=== PATIENT | female | born 1990 | race Caucasian/White ===

== ENCOUNTER 2018-09-10 15:25 | Inpatient (IN) | payer OTHER ==
--- NOTE | 2018-09-10 16:15 | ED ---
Abdominal Pain/Female - HPI Summary HPI Summary: A 28 y/o female accompanied by her father presents to [facility] with a chief complaint of RUQ abdominal pain since 09/05/18. Per triage note, Pt states n/v/ d and centralized abd pain started Friday. Developed fever Friday. Motrin at 1100. Unable to get BP in triage. She rates her pain as a 7/10 in severity and describes her pain as cramping. Her BP in the room was 127/96. The patient reports that her diarrhea stopped on 09/09/18 but she is still nauseous. She denies any urinary symptoms. She has not eaten since 09/08/18 and her PCP suggested that she go on a bread diet. The patient reports that she has not had a BM on 09/10/18. 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 She came to the ED because she thought her fever was worse than it actually is. She thought her temperature was 104 but in the ED it is 100.6. SHx tonsillectomy. - History of Current Complaint Chief Complaint: EDAbdPain Stated Complaint: HIGH FEVER Time Seen by Provider: 09/10/18 15:54 Hx Obtained From: Patient, Family/Rn Access - father Onset/Duration: Sudden Onset, Lasting Days, Still Present Timing: Constant Severity Initially: Severe Severity Currently: Severe Pain Intensity: 7 Pain Scale Used: 0-10 Numeric Location: Discrete At: RUQ Radiates: No Character: Cramping Aggravating Factor(s): Nothing Alleviating Factor(s): Nothing Associated Signs and Symptoms: Positive: Fever, Nausea, Vomiting. Negative: Urinary Symptoms, Diarrhea Allergies/Adverse Reactions: Allergies Allergy/AdvReac Type Severity Reaction Status Date / Time amoxicillin Allergy Unknown Verified 09/10/18 18:06 Reaction Details PMH/Surg Hx/FS Hx/Imm Hx Endocrine/Hematology History: Reports: Hx Diabetes Cardiovascular History: Denies: Hx Congestive Heart Failure, Hx Hypertension, Hx Pacemaker/ICD History: Denies: Hx Renal Disease Sensory History: Denies: Hx Hearing Aid Psychiatric History: Denies: Hx Panic Disorder - Surgical History Surgery Procedure, Year, and Place: TONSILECTOMY Infectious Disease History: No Infectious Disease History: Denies: Traveled Outside the [place] in Last 30 Days - Family History Known Family History: Positive: Hypertension, Other - positive: atrial fibrillation - Social History Alcohol Use: None Substance Use Type: Reports: None Smoking Status (MU): Never Smoked Tobacco Review of Systems Positive: Fever Positive: Abdominal Pain, Vomiting, Nausea. Negative: Diarrhea Positive: no symptoms reported All Other Systems Reviewed And Are Negative: Yes Physical Exam - Summary Physical Exam Summary: Appearance: The patient is obese in no acute distress and in no acute pain. Skin: The skin is warm and dry and skin color reflects adequate perfusion. HEENT: The head is normocephalic and atraumatic. The pupils are equal and reactive. The conjunctivae are clear and without drainage. Nares are patent and without drainage. Mouth reveals moist mucous membranes and the throat is without erythema and exudate. The external ears are intact. The ear canals are patent and without drainage. The tympanic membranes are intact. Neck: The neck is supple with full range of motion and non-tender. There are no carotid bruits. There is no neck vein distension. Respiratory: Chest is non-tender. Lungs are clear to auscultation and breath sounds are symmetrical and equal. Cardiovascular: Heart is regular rate and rhythm. There is no murmur or rub auscultated. There is no peripheral edema and pulses are symmetrical and equal. Abdomen: The abdomen is tender RUQ. There are normal bowel sounds heard in all four quadrants and there is no organomegaly palpated. Musculoskeletal: There is no back tenderness noted. Extremities are non-tender with full range of motion. There is good capillary refill. There is no peripheral edema or calf tenderness elicited. Neurological: Patient is alert and oriented to person, place and time. The patient has symmetrical motor strength in all four extremities. Cranial nerves are grossly intact. Deep tendon reflexes are symmetrical and equal in all four extremities. Psychiatric: The patient has an appropriate affect and does not exhibit any anxiety or depression. Triage Information Reviewed: Yes Vital Signs On Initial Exam: Initial Vitals Temp Pulse Resp BP Pulse Ox 100.6 F 142 22 0/0 96 09/10/18 15:33 09/10/18 15:33 09/10/18 15:33 09/10/18 15:33 09/10/18 15:33 Vital Signs Reviewed: Yes Diagnostics - Vital Signs Vital Signs Temp Pulse Resp BP Pulse Ox 09/10/18 15:51 111 127/96 95 09/10/18 15:50 112 96 09/10/18 15:33 100.6 F 142 22 0/0 96 - Laboratory Result Diagrams: 09/10/18 17:16 09/10/18 17:16 Lab Statement: Any lab studies that have been ordered have been reviewed, and results considered in the medical decision making process. - Ultrasound No standard instances Ultrasound Interpretation Completed By: Radiologist Summary of Ultrasound Findings: Gallbladder US impression: 1. LIMITED STUDY. 2. FATTY INFILTRATION OF THE LIVER. 3. THERE IS SLUDGE WITHIN THE GALLBLADDER. THERE IS AN EQUIVOCAL SONOGRAPHIC GARCIA SIGN. THIS IS INDETERMINATE FOR THE SONOGRAPHIC FEATURES OF ACUTE CHOLECYSTITIS. ED physician has reviewed this imaging report. Re-Evaluation - Re-Evaluation First Eval Re-Evaluation Time: 18:03 Change: Unchanged Comment: Discussed plan for admission. Abdominal Pain Fem Course/Dx - Course Course Of Treatment: Ms. Mendoza presented with right upper quadrant pain for the last 4-5 days. She has been nauseated at times and has decreased appetite. She is morbidly obese but nontoxic in appearance. She was tender in the right upper quadrant only on presentation and ultrasound was read as consistent with cholecystitis with a distended gallbladder, a sonographic Garcia sign and gallbladder sludge. She had no leukocytosis but did have some mildly elevated liver enzymes. I spoke with Dr. Tony who requested hospitalist involvement and I spoke with Dr. Chand. She was given antibiotics and fluids in the ED - Diagnoses Provider Diagnoses: Acute cholecystitis - Provider Notifications Discussed Care Of Patient With: Floyd Chand Time Discussed With Above Provider: 17:58 Instructed by Provider To: Admit As Inpatient - Critical Care Time Critical Care Time: 30-74 min Discharge - Sign-Out/Discharge Documenting (check all that apply): Patient Departure - admit Patient Received Moderate/Deep Sedation with Procedure: No - Discharge Plan Condition: Fair Disposition: ADMITTED TO [facility] Referrals: Bebeto Mosley MD [Medical Doctor] - - Billing Disposition and Condition Condition: FAIR Disposition: Admitted to [facility] - Attestation Statements Document Initiated by Scribe: Yes Documenting Scribe: Jozef Alexandra Provider For Whom Scribe is Documenting (Include Credential): Aakash Kaplan MD Scribe Attestation: Jozef Eng, scribed for Aakash Kaplan MD on 09/10/18 at 1812. Scribe Documentation Reviewed: Yes Provider Attestation: The documentation as recorded by the christibe, Jozef Alexandra accurately reflects the service I personally performed and the decisions made by me, Aakash Kaplan MD Status of Scribe Document: Viewed Consult Consult: At 17:[address] Tony, surgery, who recommended admission to the hospitalist.
[2018-09-10] MEDS ORDERED: NS 0.9% 1000 ML** 1,000 ML IV ONE (16:16)
[2018-09-10 17:25] LABS: ABS Basophils 0 10^3/ul (0-0.2); ABS Eosinophils 0.1 10^3/ul (0-0.6); ABS Lymphocytes 1.1 10^3/ul (1.0-4.8); ABS Monocytes 0.5 10^3/ul (0-0.8); ABS Neutrophils 8.1 10^3/ul (1.5-7.7); ABS Nucleated RBC 0 10^3/ul; Eosinophil % 0.9 %; Hematocrit 45 % (35-47); Hemoglobin 14.8 g/dl (12.0-16.0); Lymphocyte % 11.3 %; Mean Corpuscular HGB Conc 33 g/dl (31-36); Mean Corpuscular Hemoglobin 25 pg (27-31); Mean Corpuscular Volume 77 fL (80-97); Mean Platelet Volume 8.6 fL (7.4-10.4); Nucleated Red Blood Cells % 0.1; Platelet Count 122 10^3/ul (150-450); Red Blood Count 5.81 10^6/ul (4.00-5.40); Red Cell Distribution Width 14 % (10.5-15); White Blood Count 9.9 10^3/ul (3.5-10.8)
[2018-09-10 17:43] LABS: ALT 115 U/L (7-52); AST 113 U/L (13-39); Albumin/Globulin Ratio 1.2 (1-3); Alkaline Phosphatase 79 U/L (34-104); Anion Gap 6 mmol/L (2-11); Blood Urea Nitrogen 7 mg/dL (6-24); C Reactive Protein 22.22 mg/L (<8.01); CO2 Carbon Dioxide 29 mmol/L (22-32); Calcium 9.6 mg/dL (8.6-10.3); Chloride 102 mmol/L (101-111); EGFR African American 118.9 (>60); EGFR Non-African American 98.3 (>60); Globulin 3.4 g/dL (2-4); Glucose 85 mg/dL (70-100); Potassium 4.2 mmol/L (3.5-5.0); Sodium 137 mmol/L (135-145); Total Protein 7.4 g/dL (6.4-8.9)
[2018-09-10 17:48] LABS: HCG Pregnancy < 0.60 mIU/mL
[2018-09-10] MEDS ORDERED: Morphine VIAL* 10 MG/ML 1 ML VIAL IV ONE (17:51)
[2018-09-10] MEDS ORDERED: Ondansetron INJ* 2 MG/ML VIAL IV ONE (17:52)
[2018-09-10] MEDS ORDERED: metroNIDAZOLE IV 500 MG/100ML* 500 MG/100 ML BAG IVPB ONE (17:59)
[2018-09-10] MEDS ORDERED: Ciprofloxacin 400MG IVPREMIX(* 400 MG/200 ML BAG IVPB ONE (17:59)
--- NOTE | 2018-09-10 18:50 | ADMNOTE ---
Subjective Date of Service: 09/10/18 Interval History: ADMISSION HISTORY AND PHYSICAL EXAM: Allergies Allergy/AdvReac Type Severity Reaction Status Date / Time amoxicillin Allergy Unknown Verified 09/10/18 18:06 Reaction Details Home Medications Medication Instructions Recorded Confirmed Type Levothyroxine TAB* [Synthroid 150 150 mcg PO 0800 03/28/14 03/28/14 History MCG TAB*] metFORMIN* [Glucophage*] 1,000 mg PO 0800,1700 03/28/14 03/28/14 History HPI: The patient started with emesis 5 days ago but this got better. RUQ pain started yesterday and is more severe this afternoon. Temp was 102.4 at home, pt and father expressed concern that their thermometer may not be accurate. 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 No alcohol or tobacco use. Lives with her parents who are her SDM's. Past Medical History: Findings - Never hospitalized, nulligravida Review of Systems - Measurements Intake and Output: Intake and Output Last 24 Hours 09/08/18 09/09/18 09/10/18 09/11/18 06:59 06:59 06:59 06:59 Weight 279 lb - Review of Systems Constitutional Symptoms: Positive: Other - chills Dermatology: Positive: Normal HEENT: Positive: Normal Eyes: Positive: Normal Thyroid: Positive: Primary Hypothyroidism Pulmonary: Positive: Normal Cardiology: Positive: Normal Gastroenterology: Positive: Abdominal Pain, Nausea, Vomiting, Anorexia Musculoskeletal: Negative: Joint Pain, Joint Stiffness, Arthritis, Osteoporosis, Low Back Pain , Sciatica, Joint Deformities, Kyphoscoliosis, Other Endocrinology: Positive: Thyroid Problems, Other - "pre-diabetes" doesn't know her A1C. Hematologic/Lymphatic: Negative: Anemia, Easy Brusing, Hx Leukemia, Hx Lymphoma, Use of Anticoagulant, Use of Antiplatelet Drugs, Other Neurology: Positive: Normal Psychiatry: Positive: Normal Allergic/Immunologic: Negative: Hx Anaphylaxis, Hx Angioedema, Hx Environmental, Hx Seasonal, Athsma, Hx HIV, Immunocompromise, Swollen Glands LymphNodes, Other Objective Active Medications: Enoxaparin Sodium (Lovenox(*)) 40 mg SUBCUT Q24H DAPHNIE Ciprofloxacin/Dextrose (Cipro 400 Mg Ivpremix(*)) 400 mg in 200 mls @ 200 mls/ hr IVPB ED ONCE ONE Stop: 09/10/18 18:58 Metronidazole/Sodium Chloride (Flagyl 500 Mg Ivpb*) 500 mg in 100 mls @ 100 mls /hr IVPB ONCE ONE Stop: 09/10/18 18:58 Last Admin: 09/10/18 18:33 Dose: 100 mls/hr Ciprofloxacin/Dextrose (Cipro 400 Mg Ivpremix(*)) 400 mg in 200 mls @ 200 mls/ hr IVPB Q12H DAPHNIE Metronidazole/Sodium Chloride (Flagyl 500 Mg Ivpb*) 500 mg in 100 mls @ 100 mls /hr IVPB Q8H DAPHNIE Levothyroxine Sodium (Synthroid Tab*) 200 mcg PO 0800 DAPHNIE Vital Signs - 8 hr 09/10/18 09/10/18 09/10/18 15:33 15:50 15:51 Temperature 100.6 F Pulse Rate 142 112 111 Respiratory 22 Rate Blood Pressure 0/0 127/96 (mmHg) O2 Sat by Pulse 96 96 95 Oximetry 09/10/18 09/10/18 09/10/18 16:00 16:21 17:00 Temperature Pulse Rate 103 103 Respiratory Rate Blood Pressure 135/80 (mmHg) O2 Sat by Pulse 95 98 Oximetry 09/10/18 09/10/18 09/10/18 17:42 17:46 17:51 Temperature 100.7 F Pulse Rate 105 96 Respiratory Rate Blood Pressure 133/87 122/97 (mmHg) O2 Sat by Pulse 97 98 Oximetry 09/10/18 09/10/18 09/10/18 17:58 18:00 18:21 Temperature Pulse Rate 105 115 Respiratory 18 Rate Blood Pressure 135/75 (mmHg) O2 Sat by Pulse 96 95 Oximetry Oxygen Devices in Use Now: None Appearance: Alert, supine on ED stretcher. Child-like affect, anxious. Eyes: No Scleral Icterus Ears/Nose/Mouth/Throat: Clear Oropharnyx, Mucous Membranes Moist Respiratory: Symmetrical Chest Expansion and Respiratory Effort, Clear to Auscultation, Clear to Percussion Cardiovascular: NL Sounds; No Murmurs; No JVD, RRR, No Edema, - Abdominal: - - mod to severe RUQ tenderness. Active BS Extremities: No Edema, No Clubbing, Cyanosis, - Skin: No Rash or Ulcers, No Nodules or Sclerosis, - Neurological: Alert and Oriented x 3, NL Sensation Result Diagrams: 09/10/18 17:16 09/10/18 17:16 Assess/Plan/Problems-Billing Assessment: - Patient Problems (1) Cholecystitis Current Visit: Yes Status: Acute Code(s): K81.9 - CHOLECYSTITIS, UNSPECIFIED SNOMED Code(s): 70727046 Comment: Sludge in GB on US. Continue cipro/metro. Dr. Tony to consult. (2) Pre-diabetes Current Visit: Yes Status: Acute Code(s): R73.03 - PREDIABETES SNOMED Code (s): 176575977 Comment: Pt does not know her A1C. Needs outpt fup. (3) Fatty liver Current Visit: Yes Status: Acute Code(s): K76.0 - FATTY (CHANGE OF) LIVER, NOT ELSEWHERE CLASSIFIED SNOMED Code(s): 657936397 Comment: Per anuj. Needs outpt fup. (4) Hypothyroidism Current Visit: Yes Status: Acute Code(s): E03.9 - HYPOTHYROIDISM, UNSPECIFIED SNOMED Code(s): 44446749 Comment: Add on TSH requested. Continue levothyroxine 200 mcg as at home.
[2018-09-10 19:23] LABS: Urine Appearance Clear; Urine Bacteria Absent (Absent); Urine Bilirubin Negative (Negative); Urine Blood 2+ (Negative); Urine Color Yellow; Urine Glucose Negative (Negative); Urine Ketones 1+ (Negative); Urine Nitrite Negative (Negative); Urine Protein Negative (Negative); Urine Red Blood Cell 3+(>10/hpf) (Absent); Urine Specific Gravity 1.014 (1.010-1.030); Urine Squamous Epithelial Cell Present (Absent); Urine Urobilinogen Negative (Negative); Urine White Blood Cell Absent (Absent)
[2018-09-10 20:06] LABS: TSH (Thyroid Stimulating Horm) 0.01 mcIU/mL (0.34-5.60)
[2018-09-10] MEDS ORDERED: Acetaminophen TAB* 325 MG PO ONE (21:13)
[2018-09-10] MEDS: Enoxaparin(*) 40 MG/0.4 ML SYR SUBCUT SCH (21:49)
[2018-09-10] MEDS: Ondansetron INJ* 2 MG/ML VIAL IV PRN (22:00)
[2018-09-10] MEDS: Morphine INJ* 2 MG/ML 1 ML SYRINGE (TWO MG - NEW SYRINGE VERSION) IV PRN (22:00)
[2018-09-11] MEDS: metroNIDAZOLE IV 500 MG/100ML* 500 MG/100 ML BAG IVPB SCH ×3 (01:06→18:10)
[2018-09-11] MEDS: Morphine INJ* 2 MG/ML 1 ML SYRINGE (TWO MG - NEW SYRINGE VERSION) IV PRN ×2 (02:05→06:22)
[2018-09-11] MEDS ORDERED: Levothyroxine TAB* 100 MCG TAB PO SCH (06:00)
[2018-09-11] MEDS: Ondansetron INJ* 2 MG/ML VIAL IV PRN ×2 (06:22→20:04)
[2018-09-11 06:30] LABS: ABS Basophils 0.1 10^3/ul (0-0.2); ABS Eosinophils 0.1 10^3/ul (0-0.6); ABS Lymphocytes 2.3 10^3/ul (1.0-4.8); ABS Monocytes 0.6 10^3/ul (0-0.8); ABS Neutrophils 3.9 10^3/ul (1.5-7.7); ABS Nucleated RBC 0 10^3/ul; Eosinophil % 1.6 %; Hematocrit 42 % (35-47); Hemoglobin 13.8 g/dl (12.0-16.0); Lymphocyte % 32.7 %; Mean Corpuscular HGB Conc 33 g/dl (31-36); Mean Corpuscular Hemoglobin 26 pg (27-31); Mean Corpuscular Volume 77 fL (80-97); Mean Platelet Volume 8.4 fL (7.4-10.4); Nucleated Red Blood Cells % 0; Platelet Count 123 10^3/ul (150-450); Red Blood Count 5.39 10^6/ul (4.00-5.40); Red Cell Distribution Width 14 % (10.5-15); White Blood Count 6.9 10^3/ul (3.5-10.8)
[2018-09-11 06:46] LABS: Albumin 3.4 g/dL (3.2-5.2); Albumin/Globulin Ratio 1.1 (1-3); BUN/Creatinine Ratio 11.1 (8-20); Calcium 9.2 mg/dL (8.6-10.3); EGFR African American 134.3 (>60); Globulin 3.2 g/dL (2-4); Potassium 3.8 mmol/L (3.5-5.0); Total Bilirubin 0.5 mg/dL (0.2-1.0); Total Protein 6.6 g/dL (6.4-8.9)
[2018-09-11] MEDS: Ciprofloxacin 400MG IVPREMIX(* 400 MG/200 ML BAG IVPB SCH ×2 (07:41→20:03)
[2018-09-11] MEDS ORDERED: Acetaminophen TAB* 325 MG PO ONE (09:34)
--- NOTE | 2018-09-11 10:33 | PN ---
Progress Note - Progress Note Date of Service: 09/11/18 SOAP: Subjective:RUQ AND EPIGASTRIC PAIN 03/20 [] Objective: Vital Signs Temp 97.6 F 09/11/18 07:48 Pulse 72 09/11/18 07:48 Resp 16 09/11/18 07:50 BP 117/71 09/11/18 07:48 Pulse Ox 98 09/11/18 07:48 Intake & Output 09/10/18 09/11/18 09/11/18 18:59 06:59 18:59 Intake Total 300 Balance 300 Weight 279 lb 281 lb Intake: IV Fluids 200 Medicated IV 100 Flagyl 100 Oral 0 Laboratory Results - last 24 hr 09/10/18 09/10/18 09/10/18 17:16 17:16 17:16 WBC 9.9 RBC 5.81 H Hgb 14.8 Hct 45 MCV 77 L MCH 25 L MCHC 33 RDW 14 Plt Count 122 L MPV 8.6 Neut % (Auto) 82.2 Lymph % (Auto) 11.3 [place] % (Auto) 5.3 Eos % (Auto) 0.9 Baso % (Auto) 0.3 Absolute Neuts (auto) 8.1 H Absolute Lymphs (auto) 1.1 Absolute Monos (auto) 0.5 Absolute Eos (auto) 0.1 Absolute Basos (auto) 0 Absolute Nucleated RBC 0 Nucleated RBC % 0.1 Sodium 137 Potassium 4.2 Chloride 102 Carbon Dioxide 29 Anion Gap 6 BUN 7 Creatinine 0.70 Est GFR ( Amer) 118.9 Est GFR (Non-Af Amer) 98.3 BUN/Creatinine Ratio 10.0 Glucose 85 POC Glucose (mg/dL) Lactic Acid 1.3 Calcium 9.6 Total Bilirubin 0.60 AST 113 H ALT 115 H Alkaline Phosphatase 79 C-Reactive Protein 22.22 H Total Protein 7.4 Albumin 4.0 Globulin 3.4 Albumin/Globulin Ratio 1.2 Lipase < 10 L TSH 0.01 L Beta HCG, Quant < 0.60 Urine Color Urine Appearance Urine pH Ur Specific [place] Urine Protein Urine Ketones Urine Blood Urine Nitrate Urine Bilirubin Urine Urobilinogen Ur Leukocyte Esterase Urine WBC (Auto) Urine RBC (Auto) Ur Squamous Epith Cells Urine Bacteria Urine Glucose 09/10/18 09/10/18 09/10/18 19:00 21:18 21:32 WBC RBC Hgb Hct MCV MCH MCHC RDW Plt Count MPV Neut % (Auto) Lymph % (Auto) [place] % (Auto) Eos % (Auto) Baso % (Auto) Absolute Neuts (auto) Absolute Lymphs (auto) Absolute Monos (auto) Absolute Eos (auto) Absolute Basos (auto) Absolute Nucleated RBC Nucleated RBC % Sodium Potassium Chloride Carbon Dioxide Anion Gap BUN Creatinine Est GFR ( Amer) Est GFR (Non-Af Amer) BUN/Creatinine Ratio Glucose POC Glucose (mg/dL) 85 Lactic Acid 1.6 Calcium Total Bilirubin AST ALT Alkaline Phosphatase C-Reactive Protein Total Protein Albumin Globulin Albumin/Globulin Ratio Lipase TSH Beta HCG, Quant Urine Color Yellow Urine Appearance Clear Urine pH 7.0 Ur Specific [place] 1.014 Urine Protein Negative Urine Ketones 1+ A Urine Blood 2+ A Urine Nitrate Negative Urine Bilirubin Negative Urine Urobilinogen Negative Ur Leukocyte Esterase Negative Urine WBC (Auto) Absent Urine RBC (Auto) 3+(>10/hpf) A Ur Squamous Epith Cells Present A Urine Bacteria Absent Urine Glucose Negative 09/11/18 09/11/18 06:10 06:10 WBC 6.9 RBC 5.39 Hgb 13.8 Hct 42 MCV 77 L MCH 26 L MCHC 33 RDW 14 Plt Count 123 L MPV 8.4 Neut % (Auto) 56.2 Lymph % (Auto) 32.7 [place] % (Auto) 8.7 Eos % (Auto) 1.6 Baso % (Auto) 0.8 Absolute Neuts (auto) 3.9 Absolute Lymphs (auto) 2.3 Absolute Monos (auto) 0.6 Absolute Eos (auto) 0.1 Absolute Basos (auto) 0.1 Absolute Nucleated RBC 0 Nucleated RBC % 0 Sodium 137 Potassium 3.8 Chloride 103 Carbon Dioxide 28 Anion Gap 6 BUN 7 Creatinine 0.63 Est GFR ( Amer) 134.3 Est GFR (Non-Af Amer) 111.0 BUN/Creatinine Ratio 11.1 Glucose 88 POC Glucose (mg/dL) Lactic Acid Calcium 9.2 Total Bilirubin 0.50 AST 74 H ALT 90 H Alkaline Phosphatase 70 C-Reactive Protein Total Protein 6.6 Albumin 3.4 Globulin 3.2 Albumin/Globulin Ratio 1.1 Lipase TSH Beta HCG, Quant Urine Color Urine Appearance Urine pH Ur Specific [place] Urine Protein Urine Ketones Urine Blood Urine Nitrate Urine Bilirubin Urine Urobilinogen Ur Leukocyte Esterase Urine WBC (Auto) Urine RBC (Auto) Ur Squamous Epith Cells Urine Bacteria Urine Glucose lungs:clear bilat;heart:RRR;abd:+bs,obese,soft,nondistended;tender to palpation RUQ and epigastrium with mild guarding and rebound tenderness [] Assessment:persistent RUQ and epigastric pain;WBC nl,Tbili nl;AST and ALT trending down;afebrile gb sono sludge;equivocal sono Garcia's sign;indeterminate for acute cholecystitis pt stating that she doesn't want surgery [] Plan:Consult dictated;above reviewed with Dr. Tony;continue NPO,IV abx and IV fluids;one of the General Surgeons will see the patient today for further planning;I did discuss laparoscopic cholecystectomy indications,typical post recovery []
--- NOTE | 2018-09-11 11:35 | PN ---
Progress Note - Progress Note Date of Service: 09/11/18 SOAP: Subjective: Pt seen and care discussed with Guillermina Haas NP Pt's parents also present in room She started with nausea and diarrhea over the weekend, saw her PCP on Friday. She also had some right upper quadrant pain last week. No fevers She started with some RUQ pain on Friday-no back pain Objective: Temp Pulse Resp BP Pulse Ox 97.6 F 72 16 117/71 98 09/11/18 07:48 09/11/18 07:48 09/11/18 07:50 09/11/18 07:48 09/11/18 07:48 PEX: Morbidly obese Mild tenderness in the right upper quadrant. No rebound or guarding. No peritoneal irritation. US reviewed--not an optimal study--??sludge, ?? wall thickening although report says no. No fluid Labs reviewed--WBC normal Assessment: Nausea--diarrhea earlier in the week Subsequent development of right upper abdominal pain US with sludge Plan: HIDA scan today to evaluate for acute cholecystitis Continue IV abx for now-she feels better from yesterday She is extremely anxious about having surgery and would like to avoid-discussed with her and parents, will obtain more information with HIDA scan. If positive for acute cholecystitis, this could probably be treated successfully with antibiotics, especially if no stones present.
--- NOTE | 2018-09-11 13:01 | CONS ---
CC: Dr. Tony at [facility]; Dr. Alan Dolan * SURGICAL CONSULTATION NOTE: DATE OF CONSULT: 09/11/18 ATTENDING PHYSICIAN: Dr. Ivan Tnoy. LOCATION: This patient was seen at [facility] in room 418 on Friday , 09/11/18. CHIEF COMPLAINT: Worsening right upper quadrant abdominal pain. HISTORY OF PRESENT ILLNESS: The patient is a 28-year-old morbidly obese female , who had the onset of vomiting on 09/05/18, associated with right upper quadrant pain, chills, fever, and muscle aches. She stated that her temperature at home was as high as 102, but the patient expressed concern that her thermometer may not be accurate. She states that her urine was dark yellow to orange in color and her stools were a little light brown in color and looser. She denied any painful urination. She states that she has not been able to eat solid foods since 09/08/18. She presented to the emergency room on 09/10/18 complaining of severe right upper quadrant pain. Gallbladder ultrasound revealed a fatty liver; sludge in the gallbladder, equivocal sonographic Garcia sign indeterminate for acute cholecystitis. Her white blood cell count was 9.9, no left shift; total bilirubin 0.6, AST 113, ALT 115, lipase within normal limits. All of her electrolytes were within normal limits and test was negative. The patient was admitted to the hospitalist service for IV fluids and IV antibiotics. PAST MEDICAL HISTORY: Hypothyroidism, prediabetes, PCOS, and morbid obesity. She is followed for primary care by Dr. Dolan. PAST SURGICAL HISTORY: Tonsillectomy at age 20. OB HISTORY: 0. She states that her periods are irregular and she recently had some spotting. MEDICATIONS: 1. Levothyroxine 150 mcg p.o. daily. 2. Metformin 1000 mg p.o. b.i.d. ALLERGIES: AMOXICILLIN causes hives. FAMILY HISTORY: Parents are alive and well. Mother is treated for hypertension. Father is treated for atrial fibrillation. 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 She denies the use of alcohol or other substances and is a nonsmoker. REVIEW OF SYSTEMS: Constitutional: Fever and chills at home; no excessive fatigue. Endocrine: Hypothyroidism and prediabetes. Respiratory: No chronic cough. No shortness of breath. No history of sleep apnea. Cardiovascular: No anginal chest pain or palpitations. Gastrointestinal: As described in history of present illness. No history of colitis or ulcers. No history of GERD. Genitourinary: No dysuria. She states that her urine was darker in color recently. No history of recent urinary tract infection or kidney stones. Musculoskeletal: Body aches since the onset of her illness. Neurologic: No blurred vision or headache. General: No history of blood transfusions. No history of deep vein thrombosis or pulmonary embolism. No previous anesthesia complications. No history of MRSA infection. PHYSICAL EXAM: General Survey: The patient is a 28-year-old morbidly obese female complaining of right upper quadrant abdominal pain, in no acute distress. Height 67 inches. Weight 281 pounds. Body mass index 44. Skin: Warm, dry, intact. No jaundice. HEENT: Benign and anicteric sclerae. Neck: Supple. No cervical lymphadenopathy. Lungs: Breath sounds bilaterally clear and equal. Heart: Regular rate and rhythm. No murmurs or rubs appreciated. Abdomen: Obese. Active bowel sounds. No surgical scars. Soft, nondistended. Tender to palpation in the epigastric region and right upper quadrant. Mild guarding. Mild rebound tenderness. No obvious masses or organomegaly, but exam is limited by body habitus. Pelvic and rectal exams deferred. Extremities are warm without edema or skin ulceration. Neurologic: Alert and oriented x3. IMPRESSION: Persistent right upper quadrant and epigastric pain; gallbladder ultrasound indeterminate for acute cholecystitis; the patient states that she does not want surgery. PLAN/RECOMMENDATIONS: Continue IV fluids and NPO status. The above findings were discussed with Dr. Tony, who said that one of the general surgeons would see the patient today. IV antibiotics will be continued as well. TIME SPENT: 60 minutes with greater than 50% in [id number] counseling and history taking with the patient. FUNMI HORN NP [id number]/[facility] #: [id number] RENALDO
--- NOTE | 2018-09-11 16:12 | PN ---
Subjective Date of Service: 09/11/18 Interval History: Moraima is a 28 yo female, seen and examined at bedside. She continues to endorse RUQ, epigastic and bandlike pain across her abdomen. She was previously seen by surgery this morning but was apprehensive about the idea of surgery and was awaiting her parents' arrival. Pain medication is helpful in managing pain. 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 No alcohol or tobacco use. Lives with her parents who are her SDM's. Past Medical History: Findings - Never hospitalized, nulligravida Objective Active Medications: Enoxaparin Sodium (Lovenox(*)) 40 mg SUBCUT Q24H [facility] Last Admin: 09/10/18 21:49 Dose: Not Given Ciprofloxacin/Dextrose (Cipro 400 Mg Ivpremix(*)) 400 mg in 200 mls @ 200 mls/ hr IVPB Q12H [facility] Last Admin: 09/11/18 07:41 Dose: 200 mls/hr Metronidazole/Sodium Chloride (Flagyl 500 Mg Ivpb*) 500 mg in 100 mls @ 100 mls /hr IVPB Q8H [facility] Last Admin: 09/11/18 09:24 Dose: 100 mls/hr Levothyroxine Sodium (Synthroid Tab*) 200 mcg PO DAILY@0600 [facility] Last Admin: 09/11/18 05:05 Dose: Not Given Morphine Sulfate (Morphine Inj ((Syringe))*) 2 mg IV Q4H PRN PRN Reason: PAIN Last Admin: 09/11/18 06:22 Dose: 2 mg Ondansetron HCl (Zofran Inj*) 4 mg IV Q6H PRN PRN Reason: NAUSEA Last Admin: 09/11/18 06:22 Dose: 4 mg Vital Signs - 8 hr 09/11/18 09/11/18 11:24 11:42 Temperature 97.8 F Pulse Rate 80 Respiratory 18 18 Rate Blood Pressure 146/83 (mmHg) O2 Sat by Pulse 97 Oximetry Oxygen Devices in Use Now: None Appearance: Alert, oriented young female, responds appropriately to questions but is anxious Eyes: No Scleral Icterus, PERRLA Ears/Nose/Mouth/Throat: Mucous Membranes Moist Respiratory: Symmetrical Chest Expansion and Respiratory Effort, Clear to Auscultation Cardiovascular: NL Sounds; No Murmurs; No JVD, RRR Abdominal: - - BS +, RUQ and epigastric pain Extremities: No Clubbing, Cyanosis Neurological: Alert and Oriented x 3, NL Muscle Strength and Tone Lines/Tubes/Other Access: Clean, Dry and Intact Peripheral IV Result Diagrams: 09/11/18 06:10 09/11/18 06:10 Assess/Plan/Problems-Billing Assessment: Ms. Mendoza is a 28 yo female with a history of hypothyroidism and pre-diabetes who presented to ED on 09/10/18 with concern for RUQ pain and was found to have concern for acute cholecystitis. - Patient Problems (1) Cholecystitis Current Visit: Yes Status: Acute Code(s): K81.9 - CHOLECYSTITIS, UNSPECIFIED SNOMED Code(s): 10930564 Comment: Sludge in GB on US. Continue cipro/metro. Dr. Tony to consult. (2) Pre-diabetes Current Visit: Yes Status: Acute Code(s): R73.03 - PREDIABETES SNOMED Code (s): 245853880 Comment: Pt does not know her A1C. Needs outpt fup. (3) Fatty liver Code(s): K76.0 - FATTY (CHANGE OF) LIVER, NOT ELSEWHERE CLASSIFIED Comment: Per sonongram Appreciate surgical consult Continue ciprofloxacin, metronidazole Plan for HIDA scan (4) Hypothyroidism Code(s): E03.9 - HYPOTHYROIDISM, UNSPECIFIED Comment: TSH 0.01 Decrease levothyroxine dose from 200 to 175 mcg Follow up as outpatient in 6 weeks (5) DVT prophylaxis Comment: Lovenox Status and Disposition: Inpatient admission, anticipate surgery vs medical management.
[2018-09-11] MEDS ORDERED: Melatonin 3 MG TAB PO PRN (19:44)
[2018-09-11] MEDS: Enoxaparin(*) 40 MG/0.4 ML SYR SUBCUT SCH (19:47)
[2018-09-11] MEDS ORDERED: Acetaminophen TAB* 325 MG PO PRN (22:11)
[2018-09-11] MEDS: Ketorolac INJ* 15 MG/ML 1 ML VIAL IV PUSH PRN (22:41)
[2018-09-12] MEDS: metroNIDAZOLE IV 500 MG/100ML* 500 MG/100 ML BAG IVPB SCH ×2 (01:44→10:45)
[2018-09-12] MEDS: Ketorolac INJ* 15 MG/ML 1 ML VIAL IV PUSH PRN (04:23)
[2018-09-12] MEDS ORDERED: Levothyroxine TAB* 175 MCG TAB PO SCH (06:00)
[2018-09-12 06:59] LABS: ABS Basophils 0.1 10^3/ul (0-0.2); ABS Eosinophils 0.3 10^3/ul (0-0.6); ABS Lymphocytes 2.6 10^3/ul (1.0-4.8); ABS Monocytes 0.8 10^3/ul (0-0.8); ABS Neutrophils 3.9 10^3/ul (1.5-7.7); ABS Nucleated RBC 0 10^3/ul; Eosinophil % 3.5 %; Hematocrit 42 % (35-47); Hemoglobin 13.9 g/dl (12.0-16.0); Lymphocyte % 33.6 %; Mean Corpuscular HGB Conc 33 g/dl (31-36); Mean Corpuscular Hemoglobin 26 pg (27-31); Mean Corpuscular Volume 77 fL (80-97); Mean Platelet Volume 8.5 fL (7.4-10.4); Nucleated Red Blood Cells % 0.1; Platelet Count 118 10^3/ul (150-450); Red Blood Count 5.41 10^6/ul (4.00-5.40); Red Cell Distribution Width 14 % (10.5-15); White Blood Count 7.6 10^3/ul (3.5-10.8)
[2018-09-12 07:15] LABS: BUN/Creatinine Ratio 12.7 (8-20); Calcium 9.2 mg/dL (8.6-10.3); EGFR African American 134.3 (>60); Potassium 3.6 mmol/L (3.5-5.0)
[2018-09-12] MEDS: Ciprofloxacin 400MG IVPREMIX(* 400 MG/200 ML BAG IVPB SCH (08:02)
--- NOTE | 2018-09-12 09:48 | PN ---
Subjective Date of Service: 09/12/18 Interval History: Moraima is lying in bed, watching TV. Reports pain at a 2. She is hungry, tolerating clear liquids. Would like to advance diet and go home. Denies fever/ chills, CP, SOB, n/v. 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 No alcohol or tobacco use. Lives with her parents who are her SDM's. Past Medical History: Findings - Never hospitalized, nulligravida Objective Active Medications: Acetaminophen (Tylenol Tab*) 650 mg PO Q4H PRN PRN Reason: FEVER/PAIN Enoxaparin Sodium (Lovenox(*)) 40 mg SUBCUT Q24H [facility] Last Admin: 09/11/18 19:47 Dose: Not Given Ciprofloxacin/Dextrose (Cipro 400 Mg Ivpremix(*)) 400 mg in 200 mls @ 200 mls/ hr IVPB Q12H [facility] Last Admin: 09/12/18 08:02 Dose: 200 mls/hr Metronidazole/Sodium Chloride (Flagyl 500 Mg Ivpb*) 500 mg in 100 mls @ 100 mls /hr IVPB Q8H [facility] Last Admin: 09/12/18 01:44 Dose: 100 mls/hr Ketorolac Tromethamine (Toradol Inj*) 15 mg IV PUSH Q6H PRN PRN Reason: PAIN Stop: 09/12/18 23:59 Last Admin: 09/12/18 04:23 Dose: 15 mg Levothyroxine Sodium (Synthroid Tab*) 175 mcg PO 0600 [facility] Last Admin: 09/12/18 06:09 Dose: 175 mcg Melatonin (Melatonin) 3 mg PO BEDTIME PRN; Protocol PRN Reason: INSOMNIA Last Admin: 09/11/18 20:05 Dose: 3 mg Morphine Sulfate (Morphine Inj ((Syringe))*) 2 mg IV Q4H PRN PRN Reason: PAIN Last Admin: 09/11/18 06:22 Dose: 2 mg Ondansetron HCl (Zofran Inj*) 4 mg IV Q6H PRN PRN Reason: NAUSEA Last Admin: 09/11/18 20:04 Dose: 4 mg Vital Signs - 8 hr 09/12/18 03:16 Temperature 97.5 F Pulse Rate 53 Respiratory 18 Rate Blood Pressure 107/61 (mmHg) O2 Sat by Pulse 98 Oximetry Oxygen Devices in Use Now: None Appearance: 28 yo female, lying in bed, NAD Eyes: No Scleral Icterus, PERRLA Ears/Nose/Mouth/Throat: Mucous Membranes Moist Neck: NL Appearance and Movements; NL JVP, Trachea Midline, No Thyroid Enlargement, Masses Respiratory: Symmetrical Chest Expansion and Respiratory Effort, Clear to Auscultation Cardiovascular: NL Sounds; No Murmurs; No JVD, RRR Abdominal: - - +BS, minimally tender to RUQ Extremities: No Edema, No Clubbing, Cyanosis Neurological: Alert and Oriented x 3, NL Sensation, NL Muscle Strength and Tone Lines/Tubes/Other Access: Clean, Dry and Intact Peripheral IV Nutrition: Taking PO's Result Diagrams: 09/12/18 06:42 09/12/18 06:42 Microbiology and Other Data: Microbiology 09/10/18 17:16 Aerobic Blood Culture - Preliminary Blood Venous No Growth Day 1 Anaerobic Blood Culture - Preliminary No Growth Day 1 09/10/18 17:16 Aerobic Blood Culture - Preliminary Blood Venous No Growth Day 1 Anaerobic Blood Culture - Preliminary No Growth Day 1 Assess/Plan/Problems-Billing Assessment: Ms. Mendoza is a 28 yo female with a history of hypothyroidism and pre-diabetes who presented to ED on 09/10/18 with concern for RUQ pain and was found to have concern for acute cholecystitis. - Patient Problems (1) Cholecystitis Code(s): K81.9 - CHOLECYSTITIS, UNSPECIFIED Comment: Improved on ciprofloxacin/metronidazole HIDA scan on 09/12 Sludge in GB seen on US on admission. Surgery following, awaiting recommendations (2) Pre-diabetes Code(s): R73.03 - PREDIABETES Comment: Also with PCOS Pt does not know her A1C. Follow up with PCP as outpatient. Continue metformin. (3) Fatty liver Code(s): K76.0 - FATTY (CHANGE OF) LIVER, NOT ELSEWHERE CLASSIFIED Comment: Per sonongram Will need outpatient f/u with PCP (4) Hypothyroidism Code(s): E03.9 - HYPOTHYROIDISM, UNSPECIFIED Comment: TSH 0.01 Dewayne confirmed levothyroxine dose to be 200 mcg 5 days a week and 400 mcg 2 days a week. Decrease to 200 mcg daily. Follow up as outpatient in 6 weeks (5) DVT prophylaxis Comment: Lovenox Status and Disposition: Inpatient admission, improved. Awaiting surgical eval today to determine dispo. Attending: Blaise Rowell
--- NOTE | 2018-09-12 10:53 | PN ---
Progress Note - Progress Note Date of Service: 09/12/18 SOAP: Subjective: Pt seen and examined. Feels well. pos appetite, no nausea Objective: Temp Pulse Resp BP Pulse Ox 97.5 F 53 18 107/61 98 09/12/18 03:16 09/12/18 03:16 09/12/18 03:16 09/12/18 03:16 09/12/18 03:16 a and o x3, nad abdo: soft/ obese/ NT HIDA: obstructed cystic duct Assessment: acute cholecystitis, significantly improves with antibiotics; pt wary of surgery originally- now more open to lap jose r, but now with improvement of smptoms, I recommended interval lap jose r Plan: cipro flagy PO for 7 days d/c home f/u at [facility] interval cholecystectomy to be recommended case d/w hospitalist
[2018-09-12] MEDS ORDERED: metroNIDAZOLE TAB* 250 MG PO SCH (14:00)
[2018-09-12 15:21] VITALS: BP 135/80
--- NOTE | 2018-09-12 20:34 | DS ---
CC: Dr. Alan Dolan; Dr. Tucker Whalen; Dr. Kan Springer * DISCHARGE SUMMARY: DATE OF ADMISSION: 09/10/18 DATE OF DISCHARGE: 09/12/18 PROVIDER: Ibis Loja NP ATTENDING PHYSICIAN: Dr. Blaise Rowell * (as dictated by Ibis Loja NP) CONSULTING PHYSICIANS: Dr. Kan Springer, Surgery and Dr. Joselo Whalen, Surgery PRIMARY CARE PROVIDER: Dr. Alan Dolan PRIMARY DISCHARGE DIAGNOSES: 1. Acute cholecystitis. 2. Fatty liver. 3. Hypothyroidism with low thyroid stimulating hormone. SECONDARY DISCHARGE DIAGNOSES: 1. Prediabetes. 2. Polycystic ovarian syndrome. MEDICATIONS AT DISCHARGE: 1. Metformin 1000 mg b.i.d. 2. Levothyroxine 200 mcg daily. This is a change in previous dosing. 3. Metronidazole 500 mg q.8 hours for 7 additional days. 4. Ciprofloxacin 500 mg q.12 hours for 7 additional days. HOSPITAL COURSE OF STAY: For full details, please refer to the H and P provided by Dr. Yousif Chand on 09/10/18. In summary, this is a 28-year-old female who started with emesis 5 days prior to admission, which developed into right upper quadrant pain that became more severe. She was noted to have 102.4 temp at home and was also febrile in the ER. Ultrasound of the gallbladder showed sludge, and she was admitted with concern for acute cholecystitis. She was started on ciprofloxacin and metronidazole and given a surgical consult. Ms. Mendoza was very apprehensive about pursuing surgery to correct the cholecystitis and initially declined. She did have her parents come in and they discussed options with the surgeon. Ms. Mendoza opted for medical management at this time and was continued on IV ciprofloxacin and metronidazole. She was advanced to clear liquids last evening and in the morning of 09/12/18 was able to tolerate clear liquids and low fat diet. She reports improvement of her pain , states that it is now down to a 2/10. She is eager for discharge to home and states that she will follow up with the surgeon as directed. She was noted to have fatty liver on her sonogram, which would require outpatient followup with her PCP. She was also noted to have a TSH of 0.01. Her home levothyroxine dose was confirmed with [facility] and it states that she is on 200 mg 5 days a week and 400 mg 2 days a week. This was decreased to 200 mg daily. She will need outpatient thyroid followup labs. OUTPATIENT FOLLOWUP NEEDS: Again, she will need outpatient thyroid studies in 4 to 6 weeks. She has been referred to follow up with [facility]. She is to see her PCP, Dr. Dolan, within 5 to 7 days. DIET: Low-fat diet. ACTIVITY: As tolerated. CONDITION: Improved, stable. DISPOSITION: To home. TIME SPENT: Approximately 40 minutes was spent on this discharge. Again, this is only a brief summary of the patient's hospital course of stay. For full details, please refer to the full medical record. If you have any further questions or need further assistance, please feel free to contact me at . IBIS LOJA NP [id number]/[facility] #: [id number] RENALDO
[2018-09-12] MEDS ORDERED: Ciprofloxacin TAB* 500 MG PO SCH (21:00)
== END 2018-09-12 15:25 | disposition home or self-care (01) ==
LOC: ED 15:25 → MED 18:26
PROVIDERS: ADMIT Internal Medicine; ATTEND Internal Medicine
DX: K81.0 Acute cholecystitis (principal); Z68.41 Body mass index [BMI] 40.0-44.9, adult; K76.0 Fatty (change of) liver, not elsewhere classified; E03.9 Hypothyroidism, unspecified; R73.03 Prediabetes; E28.2 Polycystic ovarian syndrome; K83.9 Disease of biliary tract, unspecified; E66.01 Morbid (severe) obesity due to excess calories; Z88.0 Allergy status to penicillin; Z82.49 Family history of ischemic heart disease and other diseases of the circulatory system; Z79.84 Long term (current) use of oral hypoglycemic drugs
CPT/HCPCS: 36415; 76705; 78226; 80048; 80053; 81003; 81015; 83605; 83690; 84443; 84702; 85025; 86140; 87040; 99284; A9270-GY; A9537; J0744; J1650; J1885; J2270; J2405; J3490

== ENCOUNTER 2019-04-09 09:51 | Emergency (ER) | payer OTHER ==
[2019-04-09 10:09] VITALS: BP 143/66
--- NOTE | 2019-04-09 10:59 | UC ---
Nausea/Vomiting/Diarrhea HPI - HPI Summary HPI Summary: 28-year-old female presents with complaints of RUQ pain that radiates through to her back. States yesterday was having some GERD symptoms throughout the day then during the night develop the RUQ. Had nausea this morning and 1 episode of emesis. Reports pain and nausea have subsided at this time. She was admitted to [facility] in 08/2018 for possible chlecystitis. US in the ED was reported as a limited study showing gall bladder sludge, equivocal sonographic Garcia's sign, no percholecystic fluid or gall bladder wall thickening, and a fatty liver. She had a HIDA scan during her hospitalization that was negative for cholecystitis or cystic obstruction so surgery was not recommended at that time. She is currently having her menses. Denies fever, chills, rash, chest pain, SOB, diarrhea, dysuria, frequency, urgency, or hematuria. - History of Current Complaint Chief Complaint: UCAbdominalPain Stated Complaint: NAUSEA Time Seen by Provider: 04/09/19 10:42 Hx Obtained From: Patient Hx Last Menstrual Period: 04/09/19 Pain Intensity: 8 - Allergies/Home Medications Allergies/Adverse Reactions: Allergies Allergy/AdvReac Type Severity Reaction Status Date / Time amoxicillin Allergy Unknown Verified 09/10/18 18:06 Reaction Details fluoxetine [From Prozac] Allergy Rash Verified 04/09/19 10:02 Home Medications: Home Medications Norgestimate-Ethinyl Estradiol [Sprintec 28 Day Tablet] 1 tab PO DAILY 04/09/19 [History Confirmed 04/09/19] PMH/Surg Hx/FS Hx/Imm Hx Endocrine History: Diabetes, Hypothyroidism GI/ History: Gastroesophageal Reflux - Surgical History Surgical History: Yes Surgery Procedure, Year, and Place: TONSILECTOMY - Family History Known Family History: Positive: Hypertension, Other - positive: atrial fibrillation - Social History Occupation: Employed Full-time Lives: With Family Alcohol Use: None Substance Use Type: None Smoking Status (MU): Never Smoked Tobacco - Immunization History Most Recent Influenza Vaccination: 2018 Most Recent Pneumonia Vaccination: 2018 Review of Systems All Other Systems Reviewed And Are Negative: Yes Constitutional: Negative: Fever, Chills Skin: Negative: Rash Respiratory: Negative: Shortness Of Breath Cardiovascular: Negative: Chest Pain Gastrointestinal: Positive: Abdominal Pain, Vomiting, Nausea. Negative: Diarrhea Genitourinary: Negative: Dysuria, Hematuria, Frequency, Urgency Musculoskeletal: Positive: Negative Neurological: Positive: Negative Is Patient Immunocompromised?: No Physical Exam - Summary Physical Exam Summary: GENERAL APPEARANCE: Alert and cooperative, obeses adult female who appears to be in no acute distress. EYES: Conjunctiva clear. No drainage. EARS: External auditory canals and tympanic membranes clear, hearing grossly intact. NOSE: No nasal discharge. THROAT: Pharynx normal. No tonsilar inflammation, swelling, exudate, or lesions. Uvula midline. Oral cavity normal. Teeth and gingiva in good general condition. NECK: Neck supple, non-tender without lymphadenopathy. CARDIAC: Normal S1 and S2. No S3, S4 or murmurs. Rhythm is regular. There is no peripheral edema, cyanosis or pallor. Extremities are warm and well perfused. Capillary refill is less than 2 seconds. Peripheral pulses intact. LUNGS: Clear to auscultation without rales, rhonchi, wheezing or diminished breath sounds. ABDOMEN: Positive bowel sounds. Soft, nondistended, nontender. No guarding or rebound. No masses or hepatosplenomegally. No CVA tenderness. MUSKULOSKELETAL: ROM intact to all extremities. No joint erythema or tenderness. Normal muscular development. Normal gait. SKIN: Skin normal color, texture and turgor with no lesions or eruptions. Triage Information Reviewed: Yes Vital Signs: Initial Vital Signs Temp 99 F 04/09/19 10:04 Pulse 85 04/09/19 10:04 Resp 20 04/09/19 10:04 BP 143/66 04/09/19 10:04 Pulse Ox 99 04/09/19 10:04 Vital Signs Reviewed: Yes Naus/Vom/Diarrhea Course/Dx - Course Course Of Treatment: 28-year-old female presents with complaints of RUQ pain that radiates through to her back. States yesterday was having some GERD symptoms throughout the day then during the night develop the RUQ. Had nausea this morning and 1 episode of emesis. Reports pain and nausea have subsided at this time. She was admitted to [facility] in 08/2018 for possible chlecystitis. US in the ED was reported as a limited study showing gall bladder sludge, equivocal sonographic Garcia's sign, no percholecystic fluid or gall bladder wall thickening, and a fatty liver. She had a HIDA scan during her hospitalization that was negative for cholecystitis or cystic obstruction so surgery was not recommended at that time. She is currently having her menses. Denies fever, chills, rash, chest pain, SOB, diarrhea, dysuria, frequency, urgency, or hematuria. Afebrile. Hypertensive otherwise vital signs stable. Patient had an overall unremarkable exam. POC UA showed trace lysed blood and 1+ protein. POC urine negative. Reviewed findings with patient. We discussed that the blood in her urine is most likely from menses however renal calculi remains in her differential with this finding. I also discussed with the patient that I also could not rule out gall bladder disease at this time without further evaluation. Patient expressed financial concerns about further testing. With her being asymptomatic presently I feel watchful waiting is a reasonable approach. I discussed at length warning symptoms that would require immediate evaluation in the ED. She is to follow up with her primary care provider in 1-2 days for recheck of her symptoms. Patient verbalizes understanding and is agreeable to this plan of care. - Differential Dx/Diagnosis Differential Diagnoses - Female: Hepatitis, Pancreatitis, Renal Colic, Gall Bladder Disease, Gerd, Gastroenteritis (Viral), Gastroenteritis (Bacterial), Vomiting, Diarrhea, Cholelithiasis, Cholecystitis Provider Diagnosis: Acute right flank pain Condition At Discharge: Stable Discharge ED - Sign-Out/Discharge Documenting (check all that apply): Patient Departure All imaging exams completed and their final reports reviewed: No Studies - Discharge Plan Condition: Stable Disposition: HOME Patient Education Materials: Flank Pain (ED) Referrals: Alan Dolan MD [Primary Care Provider] - 2 Days Additional Instructions: The urine test performed in the clinic today showed some trace blood and protein. There was no evidence of infection. Based on your history of exam your symptoms could be from a kidney stone although I also cannot completely rule out the possibility of gallbladder disease at this time. Because her symptoms have improved at this time you elected to defer any further testing and take a watchful waiting approach. Follow-up with your primary care provider within the next 1-2 days for further evaluation of your symptoms. Seek immediate medical attention in the emergency room if you develop a fever greater than 100.5 F, severe or persistent pain, persistent or projectile vomiting, blood in your vomit or bowel movement, or any worsening of symptoms. - Billing Disposition and Condition Condition: STABLE Disposition: Home - Attestation Statements Provider Attestation: I was available for consult. This patient was seen by the KRYSTIAN. The patient was not presented to, seen by, or examined by me. -Ruby
== END 2019-04-09 11:05 | disposition home or self-care (01) ==
LOC: UCCORT 09:51
DX: R10.9 Unspecified abdominal pain (principal)
CPT/HCPCS: 81003; 84702; 99211; G0463